=== PATIENT | male | born 1965 | race Caucasian/White ===

== ENCOUNTER 2019-07-31 19:43 | Emergency (ER) | payer OTHER ==
[~2019-07-31] VITALS: Ht 182.9 cm; Wt 86.2 kg
[~2019-07-31 19:43] MED LIST: ACETAMINOPHEN325 M1 PO; KEFLEX500 MG PO; NAPROXEN500 MG PO; NORCO 5-325 TA1 EACH PO
--- OUTSIDE RECORDS SUMMARY | 2019-07-31 19:46 | XMS ---
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 ERozina VISIT COUNT (12 MO.) 1 KELLIE Christopher TOTAL 1 NOTE: Visits indicate total known visits. ED/UCC VISIT TRACKING (12 MO.) 07/31/2019 19:[address] [facility] TYPE: Emergency COMPLAINT: - BACK PAIN 07/20/2019 13:44 [facility] Care [facility] TYPE: Urgent Care DIAGNOSES: - Shortness of Breath - Other chronic pain - Other nonspecific abnormal finding of lung field - Chest pain, unspecified - Back Pain - Hemoptysis - Low back pain - Neck Pain INPATIENT VISIT TRACKING (12 MO.) No inpatient visits to display in this time frame [email or web address]
[2019-07-31] MEDS ORDERED: MORPHINE SULFAT15 M1 PO (20:16)
== END 2019-07-31 20:47 | disposition short-term general hospital (02) ==
LOC: ED 19:43
DX: M54.42 Lumbago with sciatica, left side (principal); C34.90 Malignant neoplasm of unspecified part of unspecified bronchus or lung; F17.200 Nicotine dependence, unspecified, uncomplicated
CPT/HCPCS: 99283

== ENCOUNTER 2019-08-04 01:00 | Emergency (ER) | payer OTHER ==
[~2019-08-04] VITALS: Ht 182.9 cm; Wt 84.8 kg
[~2019-08-04 01:00] MED LIST changes: +MORPHINE SULFAT15 M1 PO
--- OUTSIDE RECORDS SUMMARY | 2019-08-04 01:02 | XMS ---
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 - 2 Visits in 30 Days CARE PROVIDERS Elisabeth Light Current Barbara HUDSON PHONE: Unknown Reny has no Care Guidelines for this patient. Nik VISIT COUNT (12 MO[address] [facility] Hansa Pinzon [address] [place] [address] TOTAL 3 NOTE: Visits indicate total known visits. ED/UCC VISIT TRACKING (12 MO.) 08/04/2019 01:00 [facility] TYPE: Emergency COMPLAINT: - BACK PAIN NON INJURY [facility] DIAGNOSES: - Constipation, unspecified - Other intervertebral disc displacement, lumbar region - Malignant neoplasm of upper lobe, left bronchus or lung - Sent from [facility] for MRI - Urinary Retention - Leg Pain 07/31/2019 19:43 [facility] TYPE: Emergency COMPLAINT: - BACK PAIN DIAGNOSES: - Malignant neoplasm of unspecified part of unspecified bronchus or lung - Lumbago with sciatica, left side - Nicotine dependence, unspecified, uncomplicated - Low back pain 07/20/2019 13:44 [facility] Urgent Care Seth [facility] TYPE: Urgent Care DIAGNOSES: - Shortness of Breath - Other chronic pain - Other nonspecific abnormal finding of lung field - Chest pain, unspecified - Back Pain - Hemoptysis - Low back pain - Neck Pain INPATIENT VISIT TRACKING (12 MO.) No inpatient visits to display in this time frame [email or web address]
[2019-08-04] MEDS ORDERED: NEURONTIN100 MG PO (03:24)
== END 2019-08-04 03:45 | disposition home or self-care (01) ==
LOC: ED 01:00
DX: M54.42 Lumbago with sciatica, left side (principal); G89.29 Other chronic pain; C34.90 Malignant neoplasm of unspecified part of unspecified bronchus or lung; F17.200 Nicotine dependence, unspecified, uncomplicated; Z79.891 Long term (current) use of opiate analgesic; Z79.899 Other long term (current) drug therapy
CPT/HCPCS: 99283